=== PATIENT | male | born 1975 | race Caucasian/White ===

== ENCOUNTER 2017-12-28 10:53 | Emergency (ER) | payer SELFPAY ==
[2017-12-28 12:02] VITALS: BP 143/94
--- NOTE | 2017-12-28 12:15 | UC ---
Lower Extremity/Ankle HPI - HPI Summary HPI Summary: 42 y/o male presents to the urgent care c/o left ankle pain s/p twisting his ankle while he steppe on a crack at work today at 1000AM. Pt states pain is 6/ 10 sharp and throbbing on the dorsal side of his ankle associated w/ mild numbness an tingling over LF 2nd and 3rd toes. Pt states he took Tylenol PO for pain. Pt is able to walk w/ limping. Pt denies SOB, chest pain, abdominal pain, N/V/D. - History of Current Complaint Chief Complaint: UCLowerExtremity Stated Complaint: ANKLE INJURY Time Seen by Provider: 12/28/17 12:10 Hx Obtained From: Patient Onset/Duration: Sudden Onset, Lasting Hours - 2 hrs ago, Still Present Severity Initially: Moderate Severity Currently: Moderate Pain Intensity: 6 Pain Scale Used: 0-10 Numeric Aggravating Factor(s): Ambulation Alleviating Factor(s): Rest, Ice, OTC Meds Able to Bear Weight: Yes - Risk Factors Gout Risk Factors: Negative DVT Risk Factors: Negative Septic Arthritis Risk Factor: Negative - Allergies/Home Medications Allergies/Adverse Reactions: Allergies Allergy/AdvReac Type Severity Reaction Status Date / Time Penicillins Allergy Rash Verified 12/28/17 12:01 Home Medications: Home Medications Simethicone TAB* [Mylicon TAB*] 80 mg PO AC PRN 12/28/17 [History Confirmed ] PMH/Surg Hx/FS Hx/Imm Hx Previously Healthy: Yes Respiratory History: Asthma - Surgical History Surgical History: Yes Surgery Procedure, Year, and Place: [facility] 08/25/13 - Family History Family History: dyslipidemia - Social History Occupation: Employed Full-time Lives: With Family Alcohol Use: None Substance Use Type: None Smoking Status (MU): Never Smoked Tobacco - Immunization History Most Recent Influenza Vaccination: none Most Recent Tetanus Shot: 2011 Most Recent Pneumonia Vaccination: none Review of Systems Constitutional: Negative Skin: Negative Eyes: Negative ENT: Negative Respiratory: Negative Cardiovascular: Negative Gastrointestinal: Negative Genitourinary: Negative Motor: Negative Neurovascular: Negative Musculoskeletal: Decreased ROM - Lf ankle s/p injury, Other: - LF ankle pain s/ p injury Neurological: Negative Psychological: Negative Is Patient Immunocompromised?: No All Other Systems Reviewed And Are Negative: Yes Physical Exam Triage Information Reviewed: Yes Vital Signs: Initial Vital Signs Temp 97.5 F 12/28/17 11:58 Pulse 62 12/28/17 11:58 Resp 16 12/28/17 11:58 BP 143/94 12/28/17 11:58 Pulse Ox 98 12/28/17 11:58 - Additional Comments Vital Signs Reviewed: Yes General: well developed, well nourished male, sitting in the examining table w/ o any apparent distress Eyes: Positive: Conjunctiva Clear - PERRLA, EOMI, ENT: Positive: Normal ENT inspection, Hearing grossly normal, Pharynx normal, TMs normal Neck: Positive: Supple, Nontender, No Lymphadenopathy Respiratory: Positive: Chest non-tender, Lungs clear, Normal breath sounds, No respiratory distress Cardiovascular: Positive: RRR, No Murmur, Pulses Normal, Brisk Capillary Refill Abdomen Description: Positive: Nontender, No Organomegaly, Soft. Negative: CVA Tenderness (R), CVA Tenderness (L) Bowel Sounds: Positive: Present Musculoskeletal: - Ankle: Pt is able to bear weight and ambulate w/ limping. The LF ankle is without obvious asymmetry or deformity when compared to the L ankle. Decreased ROM due to pain. mild swelling over dorsal side of LF ankle, with point tenderness tenderness to palpation over the same area. No ecchymosis or bruising observed.Talar tilt test is negative for ligament laxity to valgus or varus stress. Negative anterior drawer. Peroneal nerve is intact with strong eversion and plantar flexion. Positive sensation over the LF foot and LF ankle , positive pulses, capillary refill intact Neurological Exam: Normal Psychological Exam: Normal Skin: warm and dry Lower Extremity Course/Dx - Course Course Of Treatment: 42 y/o male presents to the urgent care c/o left ankle pain s/p twisting his ankle while he steppe on a crack at work today at 1000AM. Pt states pain is 6/10 sharp and throbbing on the dorsal side of his ankle associated w/ mild numbness an tingling over LF 2nd and 3rd toes. Pt states he took Tylenol PO for pain. Pt is able to walk w/ limping. Pt denies SOB, chest pain, abdominal pain, N/V/D. Hx obtained. Pt given Ibuprofen Po for pain at the clinic. Pt tooerated well medication. LF ankle X-ray ordered, Impression: No acute osseous injury observed. Pt most likely with a LF ankle Sprain. Pt immobilized with gel ankle splint to , given crutches to avoid weight bearing, Rx Ibuprofen PO to decrease swelling and pain. Pt advised RICE, take Ibuprofen PO for pain and to f/u with PCP on orthopedic Dr Brown in 1 week if not improvement of symptoms for further treatment. Pt's BP is elevated today advised to decrease salt in diet, monitor BP and f/u with PCP for further management.Pt understood and agreed and left the clinic ambulating w/ the help of crutches. - Differential Dx/Diagnosis Differential Diagnosis/HQI/PQRI: Fracture (Closed), Sprain, Strain, Tendonitis Provider Diagnoses: 1- Left ankle pain s/p injury. 2- Elevated BP w/o Hx of HTN Discharge - Discharge Plan Condition: Stable Disposition: HOME Prescriptions: Ibuprofen TAB* [Motrin TAB* 800 MG] 800 mg PO Q6H PRN #30 tab PRN Reason: Pain Patient Education Materials: Ankle Sprain (ED), Low-Sodium Diet (ED) Forms: *Work Release Referrals: Ashley Gurrola NP [Primary Care Provider] - 1 Week Yosi Brown MD [Medical Doctor] - 1 Week Additional Instructions: 1-Please take medications as directed to alleviate pain and swelling. 2-Please apply ice, keep your ankle immobilized with the splint. Avoid weight bearing using the crutches 3- Please f/u with Orthopedic Dr Brown or your PCP in 1 week is not improvement of symptoms for further evaluation and treatment. 4-Your BP is elevated today. please decrease salt in your diet, monitor BP and if it continues to be elevated please f/u with your PCP for further management
[2017-12-28] MEDS ORDERED: Ibuprofen TAB* 400 MG PO ONE (12:30)
--- NOTE | 2017-12-28 12:38 | RAD ---
HISTORY: Left ankle pain status post injury COMPARISONS: None VIEWS: 3, Frontal, lateral, and oblique views of the left ankle FINDINGS: BONE DENSITY: Normal. BONES: There is no displaced fracture. There are calcaneal enthesophytes.. JOINTS: There is no arthropathy. ALIGNMENT: There is no dislocation. SOFT TISSUES: Unremarkable. OTHER FINDINGS: None. IMPRESSION: NO ACUTE OSSEOUS INJURY. IF SYMPTOMS PERSIST, RECOMMEND REPEAT IMAGING.
== END 2017-12-28 13:14 | disposition home or self-care (01) ==
LOC: UCEAST 10:53
DX: M25.572 Pain in left ankle and joints of left foot (principal); S99.912A Unspecified injury of left ankle, initial encounter; X50.1XXA Overexertion from prolonged static or awkward postures, initial encounter; Y93.01 Activity, walking, marching and hiking; Y92.89 Other specified places as the place of occurrence of the external cause; Y99.0 Civilian activity done for income or pay; J45.909 Unspecified asthma, uncomplicated; Z88.0 Allergy status to penicillin
CPT/HCPCS: 99213; A9270-GY; G0463